=== PATIENT | female | born 1970 | race American Indian/Alaskan Native ===

== ENCOUNTER 2021-06-12 15:05 | Emergency (ER) | payer OTHER ==
[2021-06-12] MEDS ORDERED: GABAPENTIN 300 MG CAP PO ONE (20:00)
[2021-06-12] MEDS ORDERED: HYDROcodone/ACETAMINOPHEN 5-325 MG TAB PO ONE (20:00)
--- NOTE | 2021-06-12 21:11 | Vascular Lab Report ---
DUPLEX DOPPLER LOWER EXTREMITY VEINS, LEFT INDICATION / CLINICAL INFORMATION: left leg pain. TECHNIQUE: Duplex doppler imaging was performed through the veins of the left lower extremity using v enous compression and other maneuvers. COMPARISON: None available. FINDINGS: LEFT COMMON FEMORAL VEIN: Negative. LEFT FEMORAL VEIN: Negative. LEFT POPLITEAL VEIN: Negative. LEFT CALF VEINS: Negative. ADDITIONAL FINDINGS: None. IMPRESSION: 1. No sonographic evidence for DVT in the left lower extremity. Signer Name: iJn Muñoz MD Signed: 06/12/2021 9:07 PM Workstation Name: [id number]
--- NOTE | 2021-06-12 21:43 | Emergency Department Report ---
ED Extremity Problem HPI - General Chief complaint: Extremity Injury, Lower Stated complaint: leg hurt Time Seen by Provider: 06/12/21 19:23 Source: patient Mode of arrival: Ambulatory Limitations: No Limitations - History of Present Illness Initial comments: 50-year-old female with a past medical history of diabetes, hypertension, and previous back surgery in 2018 and 2019 presents to the hospital with complaints of left leg pain since this morning. Pain is all the way from the hip down to the ankle. She states pain is 10/10 intensity, constant, and feels like someone is stopping on her leg. She thinks that it is mildly swollen. She denies history of PE/DVT. No reports of fever. Patient has a history of neuropathy related pain to the left extremity related to her back pain and previous surgery. She chronically takes gabapentin and tramadol. She has to tack picker her refill and has not had any of her meds today. She denies history of PE/DVT. Severity scale (0 -10): 10 - Related Data Previous Rx's Medication Instructions Recorded Last Taken Type Ibuprofen [Motrin] 800 mg PO Q8HR PRN #20 tablet 06/12/21 Unknown Rx traMADoL [Ultram 50 MG tab] 50 mg PO Q6HR PRN #6 tablet 06/12/21 Unknown Rx Allergies Allergy/AdvReac Type Severity Reaction Status Date / Time No Known Allergies Allergy Verified 06/12/21 17:26 ED Review of Systems ROS: Stated complaint: leg hurt Other details as noted in HPI Comment: All other systems reviewed and negative ED Past Medical Hx - Past Medical History Previous Medical History?: Yes Hx Hypertension: Yes Hx Diabetes: Yes - Surgical History Past Surgical History?: No - Medications Home Medications: Home Medications Medication Instructions Recorded Confirmed Last Taken Type Ibuprofen [Motrin] 800 mg PO Q8HR PRN #20 tablet 06/12/21 Unknown Rx traMADoL [Ultram 50 MG tab] 50 mg PO Q6HR PRN #6 tablet 06/12/21 Unknown Rx ED Physical Exam - General Limitations: No Limitations - Other Other exam information: General: No acute distress Head: Atraumatic Eyes: normal appearance ENT: Moist mucous membranes Neck: Normal appearance, no midline tenderness Chest: Clear to auscultation bilaterally CV: Regular rate and rhythm Abdomen: Soft, normal bowel sounds, nontender, nondistended, no rebound or guarding Back: Normal inspection Extremity: Normal inspection, full range of motion, no significant swelling noted. Tenderness to the posterior calf and thigh. 2+ DP pulse. Neuro: Alert O x 3, no facial asymmetry, speech clear, no gross motor sensory deficit Psych: Appropriate behavior Skin: No rash ED Course Vital Signs 06/12/21 06/12/21 17:25 21:17 Temperature 98.6 F Pulse Rate 115 H Respiratory 16 18 Rate Blood Pressure 148/94 O2 Sat by Pulse 100 Oximetry ED Medical Decision Making - Radiology Data Radiology results: report reviewed DUPLEX DOPPLER LOWER EXTREMITY VEINS, LEFT INDICATION / CLINICAL INFORMATION: left leg pain. TECHNIQUE: Duplex doppler imaging was performed through the veins of the left lower extremity using venous compression and other maneuvers. COMPARISON: None available. FINDINGS: LEFT COMMON FEMORAL VEIN: Negative. LEFT FEMORAL VEIN: Negative. LEFT POPLITEAL VEIN: Negative. LEFT CALF VEINS: Negative. ADDITIONAL FINDINGS: None. IMPRESSION: 1. No sonographic evidence for DVT in the left lower extremity. - Medical Decision Making 50-year-old female presents to the hospital left leg pain with history of same secondary to lumbar radiculopathy. Patient was unable to take her gabapentin and tramadol today. She can pick it up from the pharmacy tomorrow. Her Doppler exam was negative. 2+ pulses. No gross abnormality of the left leg noted. Patient received [place] and gabapentin here in the ED with improvement. She will be discharged to fill her previously prescribed medications. Critical Care Time: No Critical care attestation.: If time is entered above; I have spent that time in minutes in the direct care of this critically ill patient, excluding procedure time. ED Disposition Clinical Impression: Left leg pain, Lumbar radiculopathy Disposition: HOME / SELF CARE / HOMELESS Is pt being admited?: No Does the pt Need Aspirin: No Condition: Stable Instructions: Radicular Pain Additional Instructions: Take the medication as prescribed. Follow-up with your doctor or doctor/clinic provided. Return if symptoms worsen as indicated by your discharge instructions. Prescriptions: Ibuprofen [Motrin] 800 mg PO Q8HR PRN #20 tablet PRN Reason: Pain , Severe (7-10) traMADoL [Ultram 50 MG tab] 50 mg PO Q6HR PRN #6 tablet PRN Reason: Pain Referrals: PRIMARY CARE, [Primary Care Provider] - 3-5 Days Time of Disposition: 21:49
[2021-06-12 22:10] VITALS: BP 125/91
== END 2021-06-12 22:06 | disposition home or self-care (01) ==
LOC: ED 15:05
DX: M79.605 Pain in left leg (principal); M54.16 Radiculopathy, lumbar region; I10 Essential (primary) hypertension; E11.9 Type 2 diabetes mellitus without complications
CPT/HCPCS: 99283